=== PATIENT | male | born 1980 | race Hispanic/Latino ===

== ENCOUNTER 2017-03-12 07:45 | Day surgery (SDC) | payer OTHER ==
[~2017-03-12] VITALS: Ht 175.3 cm; Wt 97.5 kg
[~2017-03-12 07:45] MED LIST: ACID REDUCER20 MG PO; NORCO 5/3251 TABLET PO; ZOFRAN ODT4 MG PO
[2017-03-12 08:27] VITALS: BP 119/71
[2017-03-12] MEDS ORDERED: PERCOCET 5/31 TABLET PO (11:08)
[2017-03-12] MEDS ORDERED: COLACE100 MG PO (11:08)
[2017-03-12 12:59] VITALS: BP 113/68
[2017-03-12 14:40] VITALS: BP 108/61
== END 2017-03-12 14:50 | disposition home or self-care (01) ==
LOC: SDC 07:45
PROC: 0FT44ZZ Resection of Gallbladder, Percutaneous Endoscopic Approach (ICD-10-PCS; principal; 2017-03-12)
DX: K80.10 Calculus of gallbladder with chronic cholecystitis without obstruction (principal); K76.0 Fatty (change of) liver, not elsewhere classified; K21.9 Gastro-esophageal reflux disease without esophagitis; B02.9 Zoster without complications
CPT/HCPCS: 88304; J0131; J1100; J1170; J1885; J2250; J2405; J2710; J3010